=== PATIENT | male | born 1965 | race Caucasian/White ===

== ENCOUNTER 2025-10-30 09:14 | Outpatient (REF) | payer OTHER, SELFPAY ==
--- NOTE | 2025-10-30 09:19 | EMG_ITS ---
Chief complaint: Bilateral hand numbness, mostly nighttime Reason for referral: Evaluate for Carpal Tunnel Syndrome Referred by: Hernesto HERNANDEZ Procedure done: Bilateral upper extremities NCS/EMG Precautions and/or limitations: None The limb temperature was monitored continuously and remained between 32-36 degrees C during the performance of the NCS. Nerve Conduction Studies Anti Sensory Summary Table ?Stim Site NR Onset (ms) Norm Onset (ms) Peak (ms) Norm Peak (ms) O-P Amp (?V) Norm O-P Amp Site1 Site2 Delta-0 (ms) Dist (cm) Rajesh (m/s) Norm Rajesh (m/s) Left Median Anti Sensory (2nd Digit) Wrist ? 2.8 3.4 <3.6 29.5 >10 Wrist 2nd Digit 2.8 14.0 50 Right Median Anti Sensory (2nd Digit) Wrist ? 2.9 3.7 <3.6 27.1 >10 Wrist 2nd Digit 2.9 14.0 48 Right Radial Anti Sensory (Thumb) Forearm ? 1.8 2.4 <3.1 20.8 Forearm Thumb 1.8 0.0 Left Ulnar Anti Sensory (5th Digit) Wrist ? 2.4 3.1 <3.7 21.5 >15.0 Wrist 5th Digit 2.4 14.0 58 Right Ulnar Anti Sensory (5th Digit) Wrist ? 0.9 3.2 <3.7 16.1 >15.0 Wrist 5th Digit 0.9 14.0 156 Motor Summary Table ?Stim Site NR Onset (ms) Norm Onset (ms) O-P Amp (mV) Norm O-P Amp iAmp (mV) Amp (1st) (%) Site1 Site2 Delta-0 (ms) Dist (cm) Rajesh (m/s) Norm Rajesh (m/s) Left Median Motor (Abd Poll Brev) Wrist ? 3.6 <3.9 13.3 >4.5 15.8 100.0 Elbow Wrist 4.1 23.0 56 >45 Elbow ? 7.7 12.6 15.1 94.7 Right Median Motor (Abd Poll Brev) Wrist ? 3.4 <3.9 14.0 >4.5 16.5 100.0 Elbow Wrist 4.3 24.0 56 >45 Elbow ? 7.7 12.8 15.2 91.4 Left Ulnar Motor (Abd Dig Minimi) Wrist ? 3.1 <3.0 7.6 >5 9.1 100.0 B Elbow Wrist 3.6 20.0 56 >45 B Elbow ? 6.7 7.0 8.4 92.1 A Elbow B Elbow 1.5 10.0 67 >45 A Elbow ? 8.2 6.8 8.1 89.5 Right Ulnar Motor (Abd Dig Minimi) Wrist ? 3.0 <3.0 9.4 >5 11.3 100.0 B Elbow Wrist 3.8 21.0 55 >45 B Elbow ? 6.8 8.4 10.2 89.4 A Elbow B Elbow 1.2 10.0 83 >45 A Elbow ? 8.0 8.0 9.8 85.1 Comparison Summary Table ?Stim Site NR Peak (ms) Norm Peak (ms) P-T Amp (?V) Site1 Site2 Delta-P (ms) Norm Delta (ms) Right Median/Radial Dig I Comparison (Digit 1 - 10cm) Median ? 3.1 <2.9 57.8 Median Radial 0.1 Radial ? 3.0 <2.8 12.1 EMG ?Side Muscle Nerve Root Ins Act Fibs Psw Amp Dur Poly Recrt Int Pat Comment Right 1stDorInt Ulnar C8-T1 Nml Nml Nml Nml Nml 0 Nml Complete Right FlexCarRad Median C6-7 Nml Nml Nml Nml Nml 0 Nml Complete Right Biceps Musculocut C5-6 Nml Nml Nml Nml Nml 0 Nml Complete Right Triceps Radial C6-7-8 Nml Nml Nml Nml Nml 0 Nml Complete Right Deltoid Axillary C5-6 Nml Nml Nml Nml Nml 0 Nml Complete Left 1stDorInt Ulnar C8-T1 Nml Nml Nml Nml Nml 0 Nml Complete Left FlexCarRad Median C6-7 Nml Nml Nml Nml Nml 0 Nml Complete Left Biceps Musculocut C5-6 Nml Nml Nml Nml Nml 0 Nml Complete Left Triceps Radial C6-7-8 Nml Nml Nml Nml Nml 0 Nml Complete Left Deltoid Axillary C5-6 Nml Nml Nml Nml Nml 0 Nml Complete FINDINGS: Right median sensory nerve showed prolonged peak latency. All other nerves tested were within normal. Concentric needle EMG was performed in selected muscles of the bilateral upper extremities. Study did not reveal signs of electric abnormalities as shown in the table above. IMPRESSION: 1. This is an abnormal study. 2. There is electrodiagnostic evidence for right mild median neuropathy at the wrist, consistent with carpal tunnel syndrome. 3. There is no electrodiagnostic evidence for ulnar neuropathy, brachial plexopathy, or cervical radiculopathy. 4. No evidence of median neuropathy on the left on today's study. Thank you for your kind referral. Zoila Saab MD, REENA Board Certified, [place] [employer] and [employer] (ABPMR) Board Certified, [place] [employer] Electro[employer] (ABEM) CODIN [phone] x 2 extremities MTDD
--- OUTSIDE RECORDS SUMMARY | 2025-10-30 09:58 | XMS_ITS ---
Author Name [facility] Organization Unknown Care Team Organization Name Specialty Phone Email Start Date End Da te [facility] Michele Ke[facility] 10/05/2022 07/16/2024
--- OUTSIDE RECORDS SUMMARY | 2025-10-30 09:58 | XMS_ITS | Clinical Summary ---
Author Organization [facility] [address] Address [address] [place] [address] Phone Care Team Providers Care Inside [employer] Name Role Phone Marianela Cruz MD Primary Care Provider [phone] Allergies Active Allergy Reactions Criticality Noted Date Comments Pollen Extracts 05/13/2022 Seasonal Allergies Medications fluorouraciL (EFUDEX) 5 % cream Apply to affected areas twice daily for 1 consecutive week 1 Active entecavir (BARACLUDE) 0.5 mg tablet Take 0.5 mg by mouth daily. Active bisacodyL (DULCOLAX) 5 mg EC tablet Take 2 tablets by mouth right before beginning bowel prep. See instructions provided by the office 2 tablet 5 Active polyethylene glycol (Golytely) 236-22.74-6.74 -5.86 gram solution Take 4L by mouth once for one dose. May substitue any PEG. Starting at 2PM the day before your procedure drink 1 8oz glasses at your own pace until you complete half of the gallon. Finish 2nd half of the gallon at 8PM. 4000 mL 5 Active Active Problems Problem Noted Date Diagnosed Date Cervicalgia 08/14/2025 Overview (08/14/2025): 08/08/2025 diagnosis through [facility] [place], [place] Lumbar radiculopathy 08/14/2025 Overview (08/14/2025): 08/08/2025 diagnosis through [facility] [place] Carpal tunnel syndrome, bilateral 08/14/2025 Overview (08/14/2025): 08/08/2025 diagnosis through [facility] [place], [place] Abnormal CT of paranasal sinuses 12/11/2018 Overview (12/25/2024): 12/16- mucosal abnormalities, referred to ENT Subclinical hypothyroidism 07/25/2017 Chronic viral hepatitis B wi thout delta agent and without coma (CMS/HCC V24, CMS/HCC V28) 01/21/2016 Overview (12/25/2024): Ref gi 05/13. Pt did not respond [facility] GI Encounters Date Type Department Care Team Description 09/25/2025 4:17 PM EDT - 09/25/2025 11:59 PM EDT Hospital Encounter Radiology Department - [address] [address] Radiculopathy, lumbar region Discharge Disposition: Home or Self Care 08/27/2025 Results [facility] - [place] [facility] [address] [facility] [address] [place] [id number] Keshia Vasquez DO 08/26/2025 12:28 PM EDT Anesthesia Event [facility] [address] [place] [phone] Stephy Escobar MD Swanson, Mona, CRNA 08/26/2025 11:08 AM EDT - 08/26/2025 11:59 PM EDT Hospital Encounter [facility] [address] [place] [phone] Keshia Vasquez DO Swanson, Mona, CRNA Freeman, Katharine O, MD Colon cancer screening Discharge Disposition: Home or Self Care 08/08/2025 2:45 PM EDT - 08/08/2025 11:59 PM EDT Hospital Encounter [facility] [place] [address] Cervicalgia Discharge Disposition: Home or Self Care from Last 3 Months Immunizations Immunization Administration Dates Next Due Influenza Quadravalent, MDCK , 0.5ml, with preservative (Flucelvax) 6mo and older 09/26/2017 Tdap Tetanus diptheria acell ular pertussis (Boostrix; Adacel) 7yo and older 04/22/2016 Surgical History Surgery Date Site/Laterality Comments OTHER SURGICAL HISTORY PROCEDURE: DENIES PREVIOUS SURGERY Medical History Medical History Date Comments Hepatitis B DX:Hepatitis B Sprain of ligament of lumbos acral joint 06/24/2011 DX:Sprain of ligament of lum bosacral joint; COMMENT: IMO update Sacroiliitis, not elsewhere classified (CMS/HCC V24) 09/17/2008 DX:Sacroiliitis, not elsewhe re classified ([facility]) Concussion with no loss of consciousness 02/07/2018 DX:Concussion with no loss o f consciousness Facial numbness 09/20/2018 DX:Facial numbne ss; COMMENT: 09/14-MRI neg, contrast declined, MRI with contrast pending Family History Medical History Relation Name Comments Lung cancer Father Relation Name Status Comments Father Social History Tobacco Use Types Packs/Day Years Used Date Smoking Tobacco: Never Smokeless Tobacco: Never Tobacco Cessation:Counseling Given: Not Answered Alcohol Use Standard Drinks/Week Comments Yes 0 (1 standard drink = 0.6 oz pur e alcohol) Housing Instability Answer Date Recorde d Are you worried that in the next 2 months you may not have stable housing? No 05/21/2025 Food Access & Nutrition Answer Date Rec orded Do you have access to a vari ety of food including fruits and vegetables? Yes 05/21/2025 Access to Healthcare Answer Date Record ed Within the last 3 months, ho w many times did you visit the emergency department for your medical care? 0 05/21/2025 Health Literacy Answer Date Recorded How often do you need to hav e someone help you when you read instructions, pamphlets, or other written material from your doctor or pharmacy? Never 05/21/2025 Caregiver: How often do you need to have someone help you when you read instructions, pamphlets, or other written material from your doctor or pharmacy? Not on file 05/21/2025 Financial Risk Answer Date Recorded How hard is it for you to pa y for the very basics like food, housing, medical care, and air conditioning / heating? Not very hard 05/21/2025 Transportation Answer Date Recorded Has the lack of transportati on kept you from meetings, work, or from getting things needed for daily living? No Has the lack of transportati on kept you from medical appointments or from getting medications? No 05/21/2025 Social Isolation Answer Date Recorded How often do you feel lonely or isolated from th ose around you? Never 05/21/2025 Food Risk Answer Date Recorded Within the past 12 months we worried whether our food would run out before we got money to buy more. Never true 05/21/2025 Within the past 12 months th e food we bought just didn't last and we didn't have money to get more. Never true 05/21/2025 Dependent Care Answer Date Recorded Do you need help finding or paying for care for your loved ones. For example, child attendant or elderly care for an older adult? No 05/21/2025 Education Answer Date Recorded Do you think completing more education or training, like finishing a GED, going to college, or learning a trade, would be helpful for you? N/A 05/21/2025 Employment and Income Answer Date Recor ded During the last four weeks, have you been actively looking for work? No 05/21/2025 Living Situation Answer Date Recorded What is your living situation? Unrecognized valu e 05/21/2025 Interpersonal Safety Answer Date Record ed Physical Abuse Unrecognized value 08/26/2025 Verbal Abuse Unrecognized value 08/26/2025 Sex and Gender Information Value Date Recorded Sex Assigned at Male 07/18/2025 12:00 PM EDT Legal Sex Male 4:15 AM EST Gender Identity Male 07/18/2025 12:00 PM EDT Sexual Orientation Straight 07/18/2025 12 :00 PM EDT Obstetrics History Last Filed Vital Signs Vital Sign Reading Time Taken Comments Blood Pressure 108/73 08/26/2025 1:05 PM EDT Pulse 63 08/26/2025 1:05 PM EDT Temperature 36.1 C (97 F) 08/26/2025 12:45 PM EDT Respiratory Rate 18 08/26/2025 1:05 PM EDT Oxygen Saturation 98% 08/26/2025 1:05 PM EDT Inhaled Oxygen Concentration - - Weight 94.8 kg (209 lb) 08/26/2025 11:53 AM EDT Height 180.3 cm (5' 11 ) 08/26/2025 11:53 AM EDT Body Mass Index 29.15 08/26/2025 11:53 AM EDT Plan of Treatment Health Maintenance Due Date Last Done Comments Hepatitis A Vaccines (1 of 2 - Risk 2-dose series) 1984 Pneumococcal Vaccine: 50+ Years (1 of 2 - PCV) 1984 RSV Immunization Adult Patients (1 - Risk 50-74 years 1-dose series) 2015 Zoster Vaccines (1 of 2) 2015 HIV Screening 10/31/2022 Hepatitis B Vaccines (1 of 3 - Risk 3-dose series) 2025 COVID-19 Vaccine ( season) 2025 10/19/2022, 10/13/2021, 03/30/2021, Additional history exists Influenza Vaccine (#1) 2025 10/19/2022, 2016 DTaP,Tdap,and Td Vaccines (2 - Td or Tdap) 04/22/2026 04/22/2016 Social Influencers of Health Screening 05/21/2026 05/21/2025 Cholesterol Screening (Lipid Panel) 05/22/2029 05/22/2024, 05/22/2024 Colorectal Cancer Screening: Colonoscopy 08/26/2035 08/26/2025, 08/06/2015 Hepatitis C Screening Completed 09/08/2018 Depression Screening Completed 05/28/2025 HIB Vaccines Aged Out No longer eligi ble based on patient's age to complete this topic HPV Vaccines Aged Out No longer eligi ble based on patient's age to complete this topic IPV Vaccines Aged Out No longer eligi ble based on patient's age to complete this topic MMR Vaccines Aged Out No longer eligi ble based on patient's age to complete this topic Meningococcal ACWY Vaccine Aged Out N o longer eligible based on patient's age to complete this topic Meningococcal B Vaccine Aged Out No l onger eligible based on patient's age to complete this topic RSV Immunization Patients Under 20 months Aged Out No longer eligible based on patient's age to complete this topic Varicella Vaccines Aged Out No longer eligible based on patient's age to complete this topic Procedures Procedure Name Priority Date/Time Associated Diagnosis Comments MR LUMBAR SPINE WO CONTRAST Routine 09/25/2025 4:59 PM EDT Radiculopathy, lumbar region COLONOSCOPY Routine 08/26/2025 12:44 PM EDT Colon cancer screening TISSUE EXAM Routine 08/26/2025 12:39 PM EDT Colon cancer screening XR CERVICAL SPINE 4-5 VIEWS Routine 08/08/2025 3:04 PM EDT Cervicalgia LIPID PANEL Routine 05/22/2024 HM HEPATITIS C SCREENING Routine 09/08/2018 from Last 3 Months or Most Recently Relevant to Health Maintenance Results * MR Lumbar Spine wo Contrast (09/25/2025 4:59 PM EDT) Anatomical Region Laterality Modality L-spine, Spine Magnetic Resonan ce 09/26/2025 5:20 PM EDT Impressions 09/27/2025 12:53 PM EDT Impression: Multilevel degenerative changes of the lumbar spine as described above. -------- FINAL REPORT -------- Dictated By: Lola Samuel Dictated Date: 09/26/2025 17:20 ET Assigned Physician: Lola Samuel Reviewed and Electronically Signed By: Lola Samuel Signed Date: 09/27/2025 12:53 ET Workstation ID: [id number] Transcribed By: Self Edit Transcribed Date: 09/26/2025 17:21 ET Narrative 09/27/2025 12:53 PM EDT MRI LUMBAR SPINE Clinical Statement: neck and low back pain with parrsthesias Comparison: None Technique: Multiplanar, multisequence MRI images of the lumbar spine were obtained without intravenous contrast. Findings: There is normal lumbar lordosis. There is preservation of vertebral body height. Vertebral body marrow is within normal limits. Disc desiccation at multiple levels with disc height loss at L4-L5 and L5-S1. Cord signal is normal. The conus medullaris is normal in signal characteristics and morphology and terminates at the L1-2 level. T12-L1: No neuroforaminal or spinal canal stenosis seen on the sagittal view L1-L2: Broad-based disc bulge, facet arthropathy and hypertrophy, ligamentum flavum hypertrophy with moderate bilateral neuroforaminal stenosis and mild spinal canal stenosis L2-L3: Broad-based disc bulge, facet arthropathy and hypertrophy, ligamentum flavum hypertrophy with moderate bilateral neuroforaminal stenosis and moderate spinal canal stenosis L3-L4: Broad-based disc bulge and central disc protrusion, facet arthropathy and hypertrophy, ligamentum flavum hypertrophy, small annular tear with mild right and moderate left neuroforaminal stenosis and mild spinal canal stenosis L4-L5: Broad-based disc bulge and central disc protrusion, posterior annular tear, facet arthropathy and hypertrophy, ligamentum flavum hypertrophy with moderate bilateral neuroforaminal stenosis and moderate spinal canal stenosis L5-S1: Broad-based disc bulge, facet arthropathy with moderate to severe right and mild left neuroforaminal stenosis, no spinal canal stenosisI Procedure Note Lola Samuel MD - 09/27/2025 MRI LUMBAR SPINE Clinical Statement: neck and low back pain with parrsthesias Comparison: None Technique: Multiplanar, multisequence MRI images of the lumbar spine wereobtained without intravenous contrast. Findings: There is normal lumbar lordosis. There is preservation ofvertebral body height. Vertebral body marrow is within normal limits.Disc desiccation at multiple levels with disc height loss at L4-L5 andL5-S1. Cord signal is normal. The conus medullaris is normal in signalcharacteristics and morphology and terminates at the L1-2 level. T12-L1: No neuroforaminal or spinal canal stenosis seen on the sagittalview L1-L2: Broad-based disc bulge, facet arthropathy and hypertrophy,ligamentum flavum hypertrophy with moderate bilateral neuroforaminalstenosis and mild spinal canal stenosis L2-L3: Broad-based disc bulge, facet arthropathy and hypertrophy,ligamentum flavum hypertrophy with moderate bilateral neuroforaminalstenosis and moderate spinal canal stenosis L3-L4: Broad-based disc bulge and central disc protrusion, facetarthropathy and hypertrophy, ligamentum flavum hypertrophy, small annulartear with mild right and moderate left neuroforaminal stenosis and mildspinal canal stenosis L4-L5: Broad-based disc bulge and central disc protrusion, posteriorannular tear, facet arthropathy and hypertrophy, ligamentum flavumhypertrophy with moderate bilateral neuroforaminal stenosis and moderatespinal canal stenosis L5-S1: Broad-based disc bulge, facet arthropathy with moderate to severeright and mild left neuroforaminal stenosis, no spinal canal stenosisI IMPRESSION: Impression: Multilevel degenerative changes of the lumbar spine as described above. -------- FINAL REPORT -------- Dictated By: Lola Samuel Dictated Date: 09/26/2025 17:20 ET Assigned Physician: Lola Samuel Reviewed and Electronically Signed By: Lola Samuel Signed Date: 09/27/2025 12:53 ET Workstation ID: [id number] Transcribed By: Self Edit Transcribed Date: 09/26/2025 17:21 ET Hernesto HERNANDEZ IMG MRI PROCEDURES Final Resul t * COLONOSCOPY Anesthesia - MAC; [facility] ENDOSCOPY (08/26/2025 12:44 PM EDT) Anatomical Region Laterality Modality Endoscopy 08/26/2025 11:4 4 AM EDT Impressions 08/26/2025 12:45 PM EDT - Hemorrhoids found on perianal exam. - One 6 mm polyp in the ascending colon, removed with a cold snare. Resected and retrieved. - The examination was otherwise normal on direct and retroflexion views. Recommendation: - Discharge patient to home. - High fiber diet. - Continue present medications. - Await pathology results. - Repeat colonoscopy for surveillance based on pathology results. Narrative 08/26/2025 12:[address] [facility] Patient Name: Hilton Fermin Procedure Date: 08/26/2025 11:44 AM Date of : 1965 Age: 60 Gender: Male Note Status: Finalized Attending MD: Keshia Vasquez DO, [id number] Procedure Date No Time: 08/26/2025 Procedure: Colonoscopy Indications: Screening for colorectal malignant neoplasm Providers: Keshia Vasquez DO Referring MD: Michele Cruz MD Medicines: Monitored Anesthesia Care Complications: No immediate complications. Estimated blood loss: Minimal. Estimated Blood Loss: Estimated blood loss was minimal. Procedure: Pre-Anesthesia Assessment: - - Prior to the procedure, a History and Physical was performed, and patient medications and allergies were reviewed. The patient is competent. The risks and benefits of the procedure and the sedation options and risks were discussed with the patient. All questions were answered and informed consent was obtained. Patient identification and proposed procedure were verified by the physician, the nurse, the anesthesiologist, the nuclear plant instrument technician and the strain technician in the pre-procedure area in the endoscopy suite. Mental Status Examination: alert and oriented. Airway Examination: normal oropharyngeal airway and neck mobility. Respiratory Examination: clear to auscultation. CV Examination: normal. Prophylactic Antibiotics: The patient does not require prophylactic antibiotics. Prior Anticoagulants: The patient has taken no anticoagulant or antiplatelet agents. ASA Grade Assessment: II - A patient with mild systemic disease. After reviewing the risks and benefits, the patient was deemed in satisfactory condition to undergo the procedure. The anesthesia plan was to use monitored anesthesia care (MAC). Immediately prior to administration of medications, the patient was re-assessed for adequacy to receive sedatives. The heart rate, respiratory rate, oxygen saturations, blood pressure, adequacy of pulmonary ventilation, and response to care were monitored throughout the procedure. The physical status of the patient was re-assessed after the procedure. After I obtained informed consent, the scope was passed under direct vision. Throughout the procedure, the patient's blood pressure, pulse, and oxygen saturations were monitored continuously. The Olympus Pediatric Colonoscope was introduced through the anus and advanced to the terminal ileum. The colonoscopy was performed without difficulty. The patient tolerated the procedure well. The quality of the bowel preparation was good. Anatomical landmarks were photographed. Findings: Hemorrhoids were found on perianal exam. A few small-mouthed diverticula were found in the sigmoid colon and descending colon. There was no evidence of diverticular bleeding. A 6 mm polyp was found in the ascending colon. The polyp was sessile. The polyp was removed with a cold snare. Resection and retrieval were complete. Verification of patient identification for the specimen was done. Estimated blood loss was minimal. The exam was otherwise without abnormality on direct and retroflexion views. Procedure Code(s): --- Professional --- 36894, Colonoscopy, flexible; with removal of tumor(s), polyp(s), or other lesion(s) by snare technique Diagnosis Code(s): --- Professional --- Z12.11, Encounter for screening for malignant neoplasm of colon K64.9, Unspecified hemorrhoids D12.2, Benign neoplasm of ascending colon CPT copyright 2020 [employer]. All rights reserved. The codes documented in this report are preliminary and upon professional nursing assistant review may be revised to meet current compliance requirements. KESHIA Vasquez DO 08/26/2025 12:44:58 PM This report has been signed electronically.Keshia Vasquez DO Number of Addenda: 0 Note Initiated On: 08/26/2025 11:44 AM Scope Withdrawal Time: 0 hours 7 minutes 34 seconds Scope In: 12:33:02 PM Scope Out: 12:43:49 PM Endoscopy Department at [address] [address] Procedure Note Keshia Vasquez DO - 08/26/2025 [facility] Patient Name: Hilton Fermin Procedure Date: 08/26/2025 11:44 AM Date of : 1965 Age: 60 Gender: Male Note Status: Finalized Attending MD: Keshia Vasquez DO, [id number] Procedure Date No Time: 08/26/2025 Procedure: Colonoscopy Indications: Screening for colorectal malignant neoplasm Providers: Keshia Vasquez DO Referring MD: Michele Cruz MD Medicines: Monitored Anesthesia Care Complications: No immediate complications. Estimated blood loss: Minimal. Estimated Blood Loss: Estimated blood loss was minimal. Procedure: Pre-Anesthesia Assessment: - - Prior to the procedure, a History and Physicalwas performed, and patient medications and allergieswere reviewed. The patient is competent. The risks and benefits of the procedure and the sedation optionsand risks were discussed with the patient. Allquestions were answered and informed consent was obtained. Patient identification and proposed procedure were verified by the physician, the nurse, the anesthesiologist, the nuclear plant instrument technician and thetechnician in the pre-procedure area in the endoscopy suite. Mental Status Examination: alert and oriented.Airway Examination: normal oropharyngeal airway and neck mobility. Respiratory Examination: clear to auscultation. CV Examination: normal. Prophylactic Antibiotics: The patient does not requireprophylactic antibiotics. Prior Anticoagulants: The patient has taken no anticoagulant or antiplatelet agents. ASA Grade Assessment: II - A patient with mild systemic disease. After reviewing the risks and benefits,the patient was deemed in satisfactory condition to undergo the procedure. The anesthesia plan was touse monitored anesthesia care (MAC). Immediately priorto administration of medications, the patient was re-assessed for adequacy to receive sedatives. The heart rate, respiratory rate, oxygen saturations, blood pressure, adequacy of pulmonary ventilation,and response to care were monitored throughout the procedure. The physical status of the patient was re-assessed after the procedure. After I obtained informed consent, the scope was passed under direct vision. Throughout theprocedure, the patient's blood pressure, pulse, and oxygen saturations were monitored continuously. TheMontage Studiopus Pediatric Colonoscope was introduced through theanus and advanced to the terminal ileum. The colonoscopy was performed without difficulty. The patient tolerated the procedure well. The quality of thebowel preparation was good. Anatomical landmarks were photographed. Findings: Hemorrhoids were found on perianal exam. A few small-mouthed diverticula were found in the sigmoid colon and descending colon. There was no evidence of diverticular bleeding. A 6 mm polyp was found in the ascending colon. The polyp was sessile. The polyp was removed with acold snare. Resection and retrieval were complete. Verification of patient identification for the specimen was done. Estimated blood loss wasminimal. The exam was otherwise without abnormality ondirect and retroflexion views. Procedure Code(s): --- Professional --- 98811, Colonoscopy, flexible; with removal of tumor(s), polyp(s), or other lesion(s) by snare technique Diagnosis Code(s): --- Professional --- Z12.11, Encounter for screening for malignantneoplasm of colon K64.9, Unspecified hemorrhoids D12.2, Benign neoplasm of ascending colon CPT copyright 2020 [employer]. All rights reserved. The codes documented in this report are preliminary and upon professional nursing assistant reviewmay be revised to meet current compliance requirements. KESHIA Vasquez DO 08/26/2025 12:44:58 PM This report has been signed electronically.Keshia Vasquez DO Number of Addenda: 0 Note Initiated On: 08/26/2025 11:44 AM Scope Withdrawal Time: 0 hours 7 minutes 34 seconds Scope In: 12:33:02 PM Scope Out: 12:43:49 PM Endoscopy Department at [facility] - [address] [place] [phone] IMPRESSION: - Hemorrhoids found on perianal exam. - One 6 mm polyp in the ascending colon, removedwith a cold snare. Resected and retrieved. - The examination was otherwise normal on directand retroflexion views. Recommendation: - Discharge patient to home. - High fiber diet. - Continue present medications. - Await pathology results. - Repeat colonoscopy for surveillance based on pathology results. Keshia Vasquez DO GI~PROCEDURE ORDERABLES Final Re sult * Tissue exam (08/26/2025 12:39 PM EDT) Final Diagnosis Ascending Colon, polyp: Benign colonic mucosa with focal lymphoid aggregate. No dysplasia or neoplasia identified. 08/27/2025 1:15 PM EDT [facility] at 1315 EDT Gross Description A. Large Intestine, Right/Ascend ing Colon, polyp x1: Labeled polyp x 1 ascend colon . Received in green-staine d formalin, is a 0.4 x 0.2 x 0.1 cm aggregate of soft to friable, ward-pink polypoid tissue fragments and fecal/food debris, which are wrapped in paper and submitted in toto in one cassette, multiple pieces, multiple levels. TS 08/27/2025 1:15 PM EDT [facility] Disclaimer Unless otherwise specified, all tissue is 10% NB formalin fixed and paraffin embedded. 08/27/2025 1:15 PM EDT [facility] Tissue Ascending colon structure / Unknown 08/26/2025 12:39 PM EDT 08/26/2025 1:51 PM EDT us Keshia Vasquez DO LAB PATHOLOGY ORDERABLES Final R esult [facility] [address] [place] [address], [place] [phone] * XR Cervical Spine 4-5 Views (08/08/2025 3:04 PM EDT) Anatomical Region Laterality Modality Spine, C-spine Radiographic Fern ging 08/08/2025 9:15 PM EDT Impressions 08/08/2025 9:18 PM EDT 1. No fracture or dislocation of the cervical spine. 2. Mild to moderate degenerative changes. -------- FINAL REPORT -------- Dictated By: Lola Samuel Dictated Date: 08/08/2025 21:15 ET Assigned Physician: Lola Samuel Reviewed and Electronically Signed By: Lola Samuel Signed Date: 08/08/2025 21:18 ET Workstation ID: [id number] Transcribed By: Self Edit Transcribed Date: 08/08/2025 21:15 ET Narrative 08/08/2025 9:18 PM EDT HISTORY: pain TECHNIQUE: 4 views of the cervical spine COMPARISON: None FINDINGS: The cervical spine is visualized from C1-C7. Vertebral body height is maintained. Decreased disc height at C5-C6 and C6-C7 with endplate sclerosis. Small anterior osteophytes are present along the lower cervical spine. There is moderate neuroforaminal stenosis at the mid to lower cervical spine. Moderate uncovertebral arthropathy is present. The cervical alignment is maintained without spondylolisthesis. No acute fracture or dislocation is seen. There is no prevertebral soft tissue swelling. Procedure Note Lola Samuel MD - 08/08/2025 HISTORY: pain TECHNIQUE: 4 views of the cervical spine COMPARISON: None FINDINGS: The cervical spine is visualized from C1-C7. Vertebral body height ismaintained. Decreased disc height at C5-C6 and C6-C7 with endplatesclerosis. Small anterior osteophytes are present along the lower cervicalspine. There is moderate neuroforaminal stenosis at the mid to lowercervical spine. Moderate uncovertebral arthropathy is present. Thecervical alignment is maintained without spondylolisthesis. No acutefracture or dislocation is seen. There is no prevertebral soft tissueswelling. IMPRESSION: 1. No fracture or dislocation of the cervical spine. 2. Mild to moderate degenerative changes. -------- FINAL REPORT -------- Dictated By: Lola Samuel Dictated Date: 08/08/2025 21:15 ET Assigned Physician: Lola Samuel Reviewed and Electronically Signed By: Lola Samuel Signed Date: 08/08/2025 21:18 ET Workstation ID: [id number] Transcribed By: Self Edit Transcribed Date: 08/08/2025 21:[address] [facility] Hernesto HERNANDEZ IMG XR PROCEDURES Final Result * Lipid panel (05/22/2024) LDL/HDL Ratio 2 0 - 4 Triglycerides 66 0 - 150 mg/dL Cholesterol 150 0 - 200 mg/dL HDL 66 >=40 mg/dL LDL Cholesterol 71 0 - 100 mg/dL Blood Venous blood specimen / Unknown Result [facility] Historical Provider LAB BLOOD ORDERABLES Latosha l Result * Hepatitis C Screening (09/08/2018) Pathologist [facility] Hepatitis C Screening abstracted Historical Provider HEALTH MAINTENANCE Final Result from Last 3 Months or Most Recently Relevant to Health Maintenance Insurance [facility] Care Teams Inside Horticultural Specialty Grower Relationship Specialty Start Date End Date Marianela Cruz MD [address] [place] [id number] PCP - General Internal Medicine 01/19/16
--- OUTSIDE RECORDS SUMMARY | 2025-10-30 09:58 | XMS_ITS | Encounter Summary ---
Author Organization [facility] Address [address] [place] [address] Care Team Providers Care Field Technical Specialist Name Role Phone Marianela Cruz MD Primary Care Provider Encounter Details Date Type Department Care Team (Late st Contact Info) Description 08/27/2025 Results Follow-Up Gastroenterology - [place] [address] [facility] [address] [facility] [address] [place] [address] Domingo Vasquez DO [address] [facility] [address] [place] [address] Social History Tobacco Use Types Packs/Day Years Used Date Smoking Tobacco: Never Smokeless Tobacco: Never Alcohol Use Standard Drinks/Week Comments Yes 0 [...] Record ed Within the last 3 months, tammy berger many times did you visit the emergency [...] do you feel lonely or isolated from ose around you? Never 05/21/2025 Food Risk [...] care for your loved ones. For example, early childhood teacher or elderly care for an older adult? [...] Orientation Straight 07/18/2025 12 :00 PM EDT documented as of this encounter Progress Notes * Domingo Vasquez DO - 08/27/2025 1:20 PM EDT Please let the patient know that the colon polyp removed was benign and and not precancerous. Giventhe lack of personal or family history risk factors, and based on current guidelines, I recommend that a repeat screening colonoscopy is scheduled in 10 years. The patient may follow-up with the primary care provider as instructed. Please place a reminder on the system for the patient to be contacted to have a repeat screening colonoscopy in 10 years. Thank you. documented in this encounter Plan of Treatment Not on file documented as of this encounter Visit Diagnoses Not on filedocumented in this encounter Additional Health Concerns Assessment Noted Time PHQ-9 Depression Total Score: 0 05/28/20 25 9:28 AM EDT documented as of this encounter Care Teams Field Technical Specialist Relationship Specialty Start Date End Date Marianela Cruz MD [address] [place] [id number] PCP - General Internal Medicine 01/19/16 documented as of this encounter
== END 2025-10-30 09:15 | disposition home or self-care (01) ==
LOC: HO.NEURO 09:14
PROVIDERS: PCP Pediatrics; Visit Provider Physician Assistant
DX: G56.03 Carpal tunnel syndrome, bilateral upper limbs (principal); R20.0 Anesthesia of skin
CPT/HCPCS: 95886; 95911

== ENCOUNTER → 2025-10-30 09:19 | Outpatient (BNV) | payer OTHER, SELFPAY | PROVIDERS: PCP Pediatrics; Visit Provider Physical Medicine & Rehabilitation | DX: G56.01 Carpal tunnel syndrome, right upper limb (principal); R20.2 Paresthesia of skin | CPT/HCPCS: 95886; 95911 ==

== ENCOUNTER 2025-11-18 11:16 | Outpatient (AMB) | payer OTHER, SELFPAY ==
--- OUTSIDE RECORDS SUMMARY | 2025-11-13 15:00 | XMS_ITS | Encounter Summary ---
Author Organization [facility] Address [address] [place] [address] Care Team Providers Care Supervisor Grounds Name Role Phone Marianela Cruz MD Primary Care Provider [phone] Reason for Visit * Reason Comments Arm Pain R arm/bicep Encounter Details Date Type Department Care Team (Late st Contact Info) Description 11/13/2025 3:00 PM EST Office Visit Walk-In Clinic - [facility] [address] [place] [phone] Manolo Zapien PA [address] [place] [address] Biceps strain, right, initial encounter (Primary Dx); Medial epicondylitis, right elbow Social History Tobacco Use Types Packs/Day Years [...] PM EDT documented as of this encounter Last Filed Vital Signs Vital Sign Reading Time Taken Comments Blood Pressure 122/59 11/13/2025 3:06 PM EST Pulse 64 11/13/2025 3:06 PM EST Temperature 36.9 C (98.4 F) 11/13/2025 3:06 PM EST Respiratory Rate 16 11/13/2025 3:06 PM EST Oxygen Saturation 98% 11/13/2025 3:06 PM EST Inhaled Oxygen Concentration - - Weight - - Height - - Body Mass Index - - documented in this encounter Progress Notes * MARY Doyle - 11/13/2025 3:00 PM EST CHIEF COMPLAINT: Chief Complaint Patient presents with Arm Pain R arm/bicep HPI: Hilton Fermin is a 60 y.o. old male presenting with pain in the right arm that began yesterday. He was performing weightlifting at the gym, when he felt his right arm give out. He had a controlleddrop and had caught the arm with his left hand to fully release the weights. Pain has improved since yesterday. Pain is localized by patient in the proximal aspect of the antecubital fossa, and overlying the medial epicondyle. He does endorse weakness with arm flexion, and has found it difficult tolift objects such as a water bottle. Range of motion and strength have overall improved since yesterday. ROS: Remainder of the 12 point review of symptoms unremarkable except for those idenitified in the HPI. PAST MEDICAL HISTORY: Patient Active Problem List Diagnosis Date Noted Cervicalgia 08/14/2025 Lumbar radiculopathy 08/14/2025 Carpal tunnel syndrome, bilateral 08/14/[address] of paranasal sinuses 12/11/2018 Subclinical hypothyroidism 07/25/2017 Chronic viral hepatitis B without delta agent and without coma ([facility] V24, [facility]/HCC V28) 01/21/2016 Surgical History[1] SOCIAL HISTORY: Social History Tobacco Use Smoking status: Never Smokeless tobacco: Never Substance Use Topics Alcohol use: Yes FAMILY HISTORY: Family History[2] Family Status Relation Name Status Father (Not Specified) No partnership data on file MEDICATIONS DISCONTINUED/REORDERED: There are no discontinued medications. ACTIVE MEDICATIONS: Medications Taking[3] ALLERGIES: Allergies[4] PHYSICAL EXAM: Vitals: 11/13/25 1506 BP: 122/59 Pulse: 64 Resp: 16 Temp: 36.9 ??C (98.4 ??F) TempSrc: Temporal SpO2: 98% CONSTITUTIONAL: alert, calm, cooperative, in no acute distress HEAD: normocephalic, atraumatic EYES: extraocular movement intact (EOMI), sclera non-icteric EARS: no hearing deficit noted NECK/THYROID: neck range of motion grossly intact SKIN: warm and dry LUNGS: respirations regular rate and depth without acute distress MSK: no clubbing, cyanosis, or edema of the extremities. Distal biceps tendon with mild tenderness. Tendon origin just distal to the medial epicondyle is tender. Mild tenderness overlying the cubital tunnel. No erythema warmth, skin streaking, rash, ecchymosis. Proximal biceps tendon nontender. Biceps muscle body without softening or retraction. 5/5 biceps muscle strength against resistance withheld in partial flexion. 4/5 overall flexion strength of the elbow. Elbow fully flexes and fully extends. Hand and fingers moving spontaneously without weakness or loss of range of motion. Radial pulse 2+. NEUROLOGIC: alert and oriented, no tremor, cranial nerves II-XII grossly intact PSYCH: mood/affect full range, speech clear, good eye contact, cooperative with exam LABS/IMAGING: X-ray right elbow: No visualized acute fracture or dislocation on initial read. Pending radiology final interpretation. Lab Results Component Value Date EGFR 61 05/28/2025 IMPRESSION: 1. Biceps strain, right, initial encounter 2. Medial epicondylitis, right elbow PLAN: The patient's PMH, problem list and medications were reviewed in reference to the above diagnosis/diagnoses. Based on ROS, HPI, and PE, suggestive of strain of right biceps tendon with associated medial epicondylitis. No signs of tendon rupture. Neurovascular status of the extremity is grossly intact. He ishemodynamically stable in no acute distress. Educated patient to rest, ice/heat, compression, elevation. Recommended wearing elbow brace or wraps to help with pain control. Recommendation made for naproxen 220 mg tablets: Take 2 tablets every 12 hours until resolution, upto 10 days. Declines needing prescription for this, states he has enough at home. Reviewed importance of reducing weight and repetitions after rest period of the arm before returning to weightlifting. Too much weight, too many repetitions, or return to soon can increase risk of further injuries or torn muscles. Rest the arm fully from the gym for the next week, and then start very gently before gradually build into return to gym exercise with the arm. Advised to follow up with PCP in 10 days if symptoms do not improve. Advised to follow up with UC or PCP immediately for new or worsening symptoms. Educated on red flags symptoms. Advised to go to the ER or call 911 for these symptoms. Patient understands the plan. Patient verbalizes agreement with the plan. Orders Placed This Encounter Procedures XR Elbow 3+ Views Right Standing Status: Future Number of Occurrences: 1 Expected Date: 11/13/2025 Expiration Date: 11/13/2026 In what REGION should this be scheduled?: [facility] [[id number]] In what [place] LOCATION should this be scheduled?: [facility] [address] [facility] [[id number]] Release to patient: Immediate [1] MARY Doyle on 11/13/2025 at 4:14 PM EST Today's documentation was made using voice recognition software. This note may contain grammatical errors secondary to this software. [1] Past Surgical History: Procedure Laterality Date OTHER SURGICAL HISTORY PROCEDURE: DENIES PREVIOUS SURGERY [2] Family History Problem Relation Name Age of Onset Lung cancer Father [3] Outpatient Medications Marked as Taking for the 11/13/25 encounter (Office Visit) with MARY Doyle Medication Sig Dispense Refill bisacodyL (DULCOLAX) 5 mg EC tablet Take 2 tablets by mouth right before beginning bowel prep. See instructions provided by the office 2 tablet 0 entecavir (BARACLUDE) 0.5 mg tablet Take 0.5 mg by mouth daily. fluorouraciL (EFUDEX) 5 % cream Apply to affected areas twice daily for 1 consecutive week polyethylene glycol (Golytely) 236-22.74-6.74 -5.86 gram solution Take 4L by mouth once for one dose. May substitue any PEG. Starting at 2PM the day before your procedure drink 1 8oz glasses at your own pace until you complete half of the gallon. Finish 2nd half of the gallon at 8PM. 4000 mL 0 [4] Allergies Allergen Reactions Pollen Extracts Seasonal Allergies Cosigned by Lefty Boyce MD at 11/14/2025 10:11 AM EST documented in this encounter Plan of Treatment Not on file documented as of this encounter Results * XR Elbow 3+ Views Right (11/13/2025 3:58 PM EST) Anatomical Region Laterality Modality Upper Extremities, Elbow Right Radiogr aphic Imaging 11/13/2025 4:18 PM EST Impressions 11/13/2025 4:22 PM EST No acute fracture or dislocation. -------- FINAL REPORT -------- Dictated By: Aleksandra Levi Dictated Date: 11/13/2025 16:18 ET Assigned Physician: Aleksandra Levi Reviewed and Electronically Signed By: Aleksandra eLvi Signed Date: 11/13/2025 16:22 ET Workstation ID: [id number] Transcribed By: Self Edit Transcribed Date: 11/13/2025 16:18 ET Narrative 11/13/2025 4:22 PM EST EXAM: Right elbow x-ray HISTORY: Pain and weakness after weight lifting. COMPARISON: None FINDINGS: 3 views performed. No acute fracture or dislocation detected. Joint spaces are maintained. Mild spurring at the elbow joint. No destructive bone lesion. No evidence of a joint effusion. No soft tissue calcifications. Procedure Note Aleksandra Levi MD - 11/13/2025 EXAM: Right elbow x-ray HISTORY: Pain and weakness after weight lifting. COMPARISON: None FINDINGS: 3 views performed. No acute fracture or dislocation detected. Joint spaces are maintained.Mild spurring at the elbow joint. No destructive bone lesion. No evidenceof a joint effusion. No soft tissue calcifications. IMPRESSION: No acute fracture or dislocation. -------- FINAL REPORT -------- Dictated By: Aleksandra Levi Dictated Date: 11/13/2025 16:18 ET Assigned Physician: Aleksandra Levi Reviewed and Electronically Signed By: Aleksandra Levi Signed Date: 11/13/2025 16:22 ET Workstation ID: [id number] Transcribed By: Self Edit Transcribed Date: 11/13/2025 16:18 ET us Manolo HERNANDEZ IMG XR PROCEDURES Final Re sult documented in this encounter Visit Diagnoses Diagnosis Biceps strain, right, initial encounter- Primary Medial epicondylitis, right elbow Biceps strain, right, initial encounter Medial epicondylitis, right elbow documented in this encounter Additional Health Concerns Assessment Noted Time PHQ-9 Depression Total Score: 0 05/28/20 25 9:28 AM EDT documented as of this encounter Care Teams Supervisor Grounds Relationship Specialty Start Date End Date Marianela Cruz MD [address] [place] [id number] PCP - General Internal Medicine 01/19/16 documented as of this encounter
--- OUTSIDE RECORDS SUMMARY | 2025-11-13 15:51 | XMS_ITS | Encounter Summary ---
Author Organization [facility] [place] [address] Care Team Providers Care Music Assistant Name Role Phone Marianela Cruz MD Primary Care Provider [phone] Encounter Details Date Type Department Care Team (Latest Contact Info) Description 11/13/2025 3:51 PM EST - 11/13/2025 11:59 PM EST [facility] [address] [place] [phone] Biceps strain, right, initial encounter; Medial epicondylitis, right elbow Discharge Disposition: Home or Self Care Social History Tobacco Use Types Packs/Day Years [...] for your loved ones. For example, child and adolescent psychologist or elderly care for an older adult? [...] PM EDT documented as of this encounter Medications at Time of Discharge bisacodyL (DULCOLAX) 5 mg EC tablet Take 2 tablets by mouth right before beginning bowel prep. See instructions provided by the office 2 tablet 08/12/2025 entecavir (BARACLUDE) 0.5 mg tablet Take 0.5 mg by mouth daily. fluorouraciL (EFUDEX) 5 % cream Apply to affected areas twice daily for 1 consecutive week 06/23/2021 polyethylene glycol (Golytely) 236-22.74-6.74 -5.86 gram solution Take 4L by mouth once for one dose. May substitue any PEG. Starting at 2PM the day before your procedure drink 1 8oz glasses at your own pace until you complete half of the gallon. Finish 2nd half of the gallon at 8PM. 4000 mL 08/12/2025 documented as of this encounter Discharge Disposition Disposition Code Departure Means Destination Home or Self Care documented in this encounter Plan of Treatment Not on file documented as of this encounter Procedures Procedure Name Priority Date/Time Associated Diagnosis Comments XR ELBOW 3+ VIEWS RIGHT STAT 11/13/2025 3:58 PM EST Biceps strain, right, initial encounter Medial epicondylitis, right elbow documented in this encounter Results * XR Elbow 3+ [...] Signed Date: 11/13/2025 16:22 ET Workstation ID: [id number] Transcribed By: Self Edit Transcribed Date: 11/13/2025 [...] Signed Date: 11/13/2025 16:22 ET Workstation ID: [id number] Transcribed By: Self Edit Transcribed Date: 11/13/2025 16:18 ET us Manolo HERNANDEZ IMG XR PROCEDURES Final Re sult documented in this encounter Visit Diagnoses Diagnosis Biceps strain, right, initial encounter Medial epicondylitis, right elbow documented in this encounter Additional Health Concerns Assessment Noted Time PHQ-9 Depression Total Score: 0 05/28/20 25 9:28 AM EDT documented as of this encounter Care Teams Music Assistant Relationship Specialty Start Date End Date Marianela Cruz MD [address] [place] [id number] PCP - General Internal Medicine 01/19/16 documented as of this encounter
--- NOTE | 2025-11-18 11:28 | A.PHYSOV ---
Vital Signs 11/18/25 11:29 Height 5 ft 11 in Weight 215 lb BMI 30.0 Intake Visit Reasons: follow up Intake Note: Patient nis a 60 year old male here for EMG review. 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 A recent EMG confirmed very mild carpal tunnel syndrome. The patient reports that his neck and arm pain are about the same, with the neck pain characterized as stiffness. He states his low back pain is more significant than his neck pain, and his symptoms sometimes disturb his sleep. He describes an episode where his right arm collapsed while bench pressing, though he did not feel a pop or tear. He reports associated tingling in his hand. Past diagnostic workup includes a prior MRI of his low back. Pain Description - Location: Reports neck pain, which is less severe than his low back pain. - Quality: Neck pain is described as stiffness. - Associated Symptoms: Experiences tingling in his hand and sleep disturbance from pain. - Exacerbating Factors: Patient is concerned that heavy lifting may be contributing to his symptoms and reports a recent episode of arm collapse while bench pressing. Results - Tests and Diagnostics: EMG confirmed very mild carpal tunnel syndrome. - Imaging: An MRI of the lumbar spine was previously performed. [facility] Social History (Updated 11/18/25 @ 11:32 by Amanda Mckeon MA) Alcohol intake: current Alcohol intake frequency: holidays/special occasions only Patient Tobacco Use Status: Never used Tobacco Use of substances other than those prescribed or required for medical reasons: No Review of Systems Narrative Review of Systems - Musculoskeletal: Reports neck stiffness, low back pain, and an episode of right arm collapse during exercise. - Neurological: Reports tingling in the hand. - General: Reports sleep disturbance secondary to pain. Physical Exam Exam Exam: Physical Exam Cervical Spine: Examination of the cervical spine, he is nontender to palpation. Full range of motion cervical spine. Special Tests: Axial Compression test: Negative Spurlings test: Negative Lhermitte's sign is Negative Upper Extremities: Full range of motion bilateral upper extremities. Equal user interface designer strength bilaterally. Positive Tinel test on the right. Neuro: Sensation: Intact to upper extremities bilateral to light touch Strength C5 (Elbow Flexion): 5/5 on the left and 5/5 on the right. C6 (Elbow Ext): 5/5 on the left and 5/5 on the right. C7 (Elbow Ext): 5/5 on the left and 5/5 on the right. C8 (Finger Flex): 5/5 on the left and 5/5 on the right. T1 (Finger Abd/Add): 5/5 on the left and 5/5 on the right. DTR: C5 (Biceps): Left 2 Right 2 C6 (Brachioradialis): Left 2 Right 2 C7 (Triceps): Left 2 Right 2 Salas sign: Negative No pathologic clonus. No involuntary movement. Lumbar Spine: Examination of his lumbar spine, there is no visible swelling or deformity. He is tender to lower lumbar facets. He has full range of motion of the lumbar spine. He does have an increase in pain with facet loading. Special Tests: Lhermittes sign was negative Heel Toe walk is normal Left straight leg raise: Negative Right straight leg raise: Negative Special tests Mi test is negative Ganslen's test is negative SI Joint compression test negative Jean Carlos test negative Piriformis stretch is negative Lower Extremities: Full range of motion bilateral lower extremities. No calf pain or edema. Neuro: Sensation: Intact to lower extremities bilaterally Strength L2 (Psoas): 5/5 on the left and 5/5 on the right. L3 (Quads): 5/5 on the left and 5/5 on the right. L4 (Ant tibialis): 5/5 on the left and 5/5 on the right. L5 (EHL) 5/5 on the left and 5/5 on the right. S1 (Gastroc): 5/5 on the left and 5/5 on the right. DTR L4: (Patellar) Left 2 Right 2 S1: (Achilles) Left 1 Right 1 Babinski Downgoing No pathologic clonus. No involuntary movement. Vital Signs: BMI result Body Mass Index 30.0 Assessment & Plan Assessment & Plan (1) Lumbar radiculopathy: Code(s): M54.16 - Radiculopathy, lumbar region Category: Medical (2) Cervical radiculopathy: Code(s): M54.12 - Radiculopathy, cervical region Category: Medical (3) Carpal tunnel syndrome of right wrist: Code(s): G56.01 - Carpal tunnel syndrome, right upper limb Category: Medical Plan Pain Management - Affect: Patient's pain keeps him up at night. - Analgesia: He reports his pain is about the same. - Activities of Daily Living: Pain interferes with sleep, and he has concerns about heavy lifting. Plan Patient was informed and verbally consented to the use of an ambient scribe for clinic note documentation during this visit. 1. Mild Carpal Tunnel Syndrome The patient's EMG results confirm very mild carpal tunnel syndrome, which is believed to be the source of his hand tingling, rather than a cervical spine issue. Treatment options were discussed, including a corticosteroid injection, wrist splinting, and occupational therapy. An injection would offer symptom relief for approximately six months by decreasing inflammation but is not a cure. The patient is hesitant to pursue an injection as he does not want to merely mask the symptoms. He has decided to defer treatment for now and will call the office to schedule an injection if he changes his mind. 2. Cervicalgia The patient reports ongoing neck stiffness and an episode of right arm collapse during exercise, which could potentially be related to a C5 or C6 pinched nerve. The current plan is to address the confirmed carpal tunnel syndrome first, as it is a safer intervention than a neck procedure. An MRI of the neck was discussed as a future diagnostic option to investigate for a pinched nerve if symptoms persist. The patient was advised to consider bringing his weight down a little bit during lifting and to take it easy. 3. Low Back Pain The patient reports his low back pain is worse than his neck pain. No new management or diagnostic plan was initiated for this issue during the current visit. Patient may consider lumbar epidural. He will monitor his symptoms and contact our office with the treatment plan of his choice. Discussion Notes I discussed with the patient that his recent EMG showed very mild carpal tunnel syndrome, which is the likely cause of his hand tingling. I explained the treatment options, including a corticosteroid injection, splinting, and occupational therapy. I informed him that an injection could provide symptom relief for about six months by reducing inflammation but would not be a cure, and I reviewed the risks of infection, bleeding, and nerve damage. We discussed his recent episode of arm collapse, and I noted it could be related to a pinched nerve in his neck, which could be evaluated with an MRI if necessary. I explained that my approach is to treat the confirmed peripheral issue in the wrist first, as it is a safer intervention. The patient decided to defer any procedures at this time to think about his options. I agreed with his decision and instructed him to call the office if he wishes to proceed with a carpal tunnel injection. Patient Instructions - Your EMG test shows you have mild carpal tunnel syndrome, which is likely causing the tingling in your hand. - When lifting weights, consider lowering the weight to avoid aggravating your symptoms, especially given the recent episode of arm weakness. - Treatment options for your carpal tunnel include a steroid injection, splinting, or occupational therapy. - The steroid injection can provide symptom relief for about six months, but it is not a cure for the condition. - You have decided to wait before proceeding with any treatment. If you change your mind and want to get the injection, please call our office to schedule it. - Continue with a healthy diet and low-impact activities. Coding Level of Care Code Est Pt Level 3 (15379) Diagnoses Lumbar radiculopathy M54.16 Cervical radiculopathy M54.12 Carpal tunnel syndrome of right wrist G56.01
--- OUTSIDE RECORDS SUMMARY | 2025-11-18 14:24 | XMS_ITS | Encounter Summary ---
Author Organization [facility] Address [address] [place] [address] Care Team Providers Care Assembly Person Name Role Phone Marianela Cruz MD Primary Care Provider [phone] Reason for Visit * Reason Onset Date Comments Arm Injury 11/12/2025 Encounter Details Date Type Department Care Team ([facility] st Contact Info) Description 11/12/2025 Telephone Adult Medicine - [place] [address] [place] [id number] Marianela Cruz MD [address] [place] [address] Social History Tobacco Use Types Packs/Day Years [...] care for your loved ones. 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 [...] as of this encounter Progress Notes * Vibha Vasquez RN - 11/13/2025 2:10 PM EST spoke to pt-reports of doing curling exercises at the gym when L upper arm gave way ;hurting much few days ago. pt states it hurts when picking up a water bottle or shaking hands. appt made. * Shae Mary - 11/13/2025 12:54 PM EST Patient returning call. Please call back. * Vibha Vasquez RN - 11/13/2025 12:49 PM EST Attempted to call pt; [facility] for phone triage. * Dirk Vitale RN - 11/12/2025 10:38 AM EST Left message for pt to please return our call * Shae Mary - 11/12/2025 10:30 AM EST Patient call requires triage: Symptoms patient is presenting: patient working out at gym yesterday and his left arm bicep gave way and is in pain. Can't use his hand How long has patient had these symptoms?: yesterday For ALL patients calling to schedule any appointment (routine, sick visit, follow up, consult, etc.) in the outpatient setting please ask the following questions: Do you have fever of higher than 101, sore throat with difficulty swallowing or severe shortness ofbreath? no If YES to any of these above symptoms, send a message to triage and do not book. Red dot. If no, an audio or video visit should be booked. Have you had close contact with someone with Coronavirus in the last 14 days? no Have you traveled abroad? no Have you traveled recently to another state outside of [place], [place], [place], [place], [place], [place], [place]? no o If yes, did you quarantine for 14 days or have a negative covid test? no If yes to any of the above, patient is not to be scheduled in office until after 14 day quarantine or negative covid test. If pain or injury related was it due to an accident at work or from a motor vehicle accident? If yes, date of accident/Injury: No If yes, gather 3rd constitution party insurance information Third Republican Information: not applicable PCP: Marianela Cruz MD Payor: [facility] / Plan: [facility] CHOICE PLUS / Product Type: *No Product type* / documented in this encounter Plan of Treatment Not on file documented as of this encounter Visit Diagnoses Not on filedocumented in this encounter Additional Health Concerns Assessment Noted Time PHQ-9 Depression Total Score: 0 05/28/20 25 9:28 AM EDT documented as of this encounter Care Teams Assembly Person Relationship Specialty Start Date End Date Marianela Cruz MD [address] [place] [id number] PCP - General Internal Medicine 01/19/16 documented as of this encounter
--- OUTSIDE RECORDS SUMMARY | 2025-11-18 14:24 | XMS_ITS | Clinical Summary ---
Author Organization [facility] [address] [facility] lding Address [address] [place] [address] Phone Care Team Providers Care Rotary Driller Name Role Phone Marianela Curz MD Primary Care Provider [phone] Allergies Active Allergy Reactions Criticality Noted Date [...] 08/14/2025 Overview (08/14/2025): 08/08/2025 diagnosis through [facility] [place] Lumbar radiculopathy 08/14/2025 Overview (08/14/2025): 08/08/20[facility] [place] Carpal tunnel syndrome, bilateral 08/14/2025 Overview (08/14/2025): 08/08/20[facility] [place] Ab[facility] CT of paranasal sinuses 12/11/2018 Overview (12/25/2024): 12/16- mucosal abnormalities, referred to ENT Subclinical hypothyroidism 07/25/2017 Chronic viral hepatitis B wi thout delta agent and without coma 01/21/2016 Overview (12/25/2024): Ref gi 05/13. Pt did not respond [facility] GI Encounters Date Type Department Care Team Description 11/13/2025 3:51 PM EST - 11/13/2025 11:59 PM EST Hospital Encounter Xray - [place] [address] [place], [place] [phone] Biceps strain, right, initial encounter; Medial epicondylitis, right elbow Discharge Disposition: Home or Self Care 11/13/2025 3:00 PM EST Office Visit Walk-In Clinic - [facility] [address] [place], [place] [phone] Manolo Zapien PA Biceps strain, right, initial encounter (Primary Dx); Medial epicondylitis, right elbow 11/12/2025 Telephone Adult Medicine - [place] [address] [place] [address] Marianela Cruz MD 09/25/2025 4:17 PM EDT - 09/25/2025 11:59 PM EDT Hospital Encounter Radiology Department - [address] [phone] Radiculopathy, lumbar region Discharge Disposition: Home or Self Care 08/27/2025 Results Follow-Up Gastroenterology - [place] [address] [facility] [address] [place] [address] Keshia Vasquez DO 08/26/2025 12:28 PM EDT Anesthesia Event [facility] [address] [place] [address] Stephy Escobar MD Swanson, Mona, CRNA 08/26/2025 11:08 AM EDT - 08/26/2025 11:59 PM EDT Hospital Encounter [facility] [address] [place] [address] Keshia Vasquez DO Swanson, Mona, CRNA Freeman, Katharine O, MD Colon cancer screening Discharge Disposition: Home or Self Care from [...] V24) 09/17/2008 DX:Sacroiliitis, not elsewhe re classified (HCC) Concussion with no loss of consciousness 02/07/2018 [...] care for your loved ones. 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 or elderly care for an older [...] Orientation Straight 07/18/2025 12 :00 PM EDT Last Filed Vital Signs Vital Sign Reading Time Taken Comments Blood Pressure 122/59 11/13/2025 3:06 PM EST Pulse 64 11/13/2025 3:06 PM EST Temperature 36.9 C (98.4 F) 11/13/2025 3:06 PM EST Respiratory Rate 16 11/13/2025 3:06 PM EST Oxygen Saturation 98% 11/13/2025 3:06 PM EST Inhaled Oxygen Concentration - - Weight 94.8 [...] right, initial encounter Medial epicondylitis, right elbow MR LUMBAR SPINE WO CONTRAST Routine 09/25/2025 4:59 PM EDT Radiculopathy, lumbar region COLONOSCOPY Routine 08/26/2025 12:44 PM EDT Colon cancer screening TISSUE EXAM Routine 08/26/2025 12:39 PM EDT Colon cancer screening LIPID PANEL Routine 05/22/2024 HEPATITIS C SCREENING Routine 09/08/2018 from Last 3 Months or Most Recently Relevant to Health Maintenance Results * XR Elbow 3+ Views Right [...] Signed Date: 11/13/2025 16:22 ET Workstation ID: [id number] Transcribed By: Self Edit Transcribed Date: 11/13/2025 [...] Signed Date: 11/13/2025 16:22 ET Workstation ID: [id number] Transcribed By: Self Edit Transcribed Date: 11/13/2025 16:18 ET Manolo HERNANDEZ IMG XR PROCEDURES Final Re sult * MR Lumbar Spine wo Contrast (09/25/2025 [...] Signed Date: 09/27/2025 12:53 ET Workstation ID: [id number] Transcribed By: Self Edit Transcribed Date: 09/26/2025 [...] Signed Date: 09/27/2025 12:53 ET Workstation ID: [id number] Transcribed By: Self Edit Transcribed Date: 09/26/2025 17:21 ET Hernesto HERNANDEZ IMG MRI PROCEDURES Final Resul t * COLONOSCOPY Anesthesia - MAC; [facility] ENDOSCOPY (08/26/2025 12:44 PM EDT) Anatomical Region [...] pathology results. Narrative 08/26/2025 12:45 PM EDT [facility] Patient Name: Hilton Fermin Procedure Date: 08/26/2025 11:44 AM Date of : 1965 Age: 60 Gender: Male Note Status: Finalized Attending MD: Keshia Vasquez DO, [id number] Procedure Date No Time: 08/26/2025 Procedure: Colonoscopy [...] the physician, the nurse, the anesthesiologist, the jumpbasting machine operator and the vending technician in the pre-procedure area in the [...] retroflexion views. Procedure Code(s): --- Professional --- 79075, Colonoscopy, flexible; with removal of tumor(s), polyp(s), or other lesion(s) by snare technique Diagnosis Code(s): --- Professional --- Z12.11, Encounter for screening for malignant neoplasm of colon K64.9, Unspecified hemorrhoids D12.2, Benign neoplasm of ascending colon CPT copyright 2020 [employer]. All rights reserved. The codes documented in this report are preliminary and upon visual display manager review may be revised to meet current compliance requirements. KESHIA Vasquez DO 08/26/2025 12:44:58 PM This report has been signed electronically.Keshia Vasquez DO Number of Addenda: 0 Note Initiated On: 08/26/2025 11:44 AM Scope Withdrawal Time: 0 hours 7 minutes 34 seconds Scope In: 12:33:02 PM Scope Out: 12:43:49 PM Endoscopy Department at [facility] - [address] [place] [phone] Procedure Note Keshia Vasquez DO - 08/26/2025 [facility] GI Patient Name: Hilton Fermin Procedure Date: 08/26/2025 11:44 AM Date of : 1965 Age: 60 Gender: Male Note Status: Finalized Attending MD: Keshia Vasquez DO, [id number] Procedure Date No Time: 08/26/2025 Procedure: Colonoscopy [...] the physician, the nurse, the anesthesiologist, the jumpbasting machine operator and thetechnician in the pre-procedure area in [...] pulse, and oxygen saturations were monitored continuously. TheOlympus Pediatric Colonoscope was introduced through theanus and [...] retroflexion views. Procedure Code(s): --- Professional --- 33225, Colonoscopy, flexible; with removal of tumor(s), polyp(s), or other lesion(s) by snare technique Diagnosis Code(s): --- Professional --- Z12.11, Encounter for screening for malignantneoplasm of colon K64.9, Unspecified hemorrhoids D12.2, Benign neoplasm of ascending colon CPT copyright 2020 [employer]. All rights reserved. The codes documented in this report are preliminary and upon visual display manager reviewmay be revised to meet current compliance requirements. KESHIA Vasquez DO 08/26/2025 12:44:58 PM This report has been signed electronically.Keshia Vasquez DO Number of Addenda: 0 Note Initiated On: 08/26/2025 11:44 AM Scope Withdrawal Time: 0 hours 7 minutes 34 seconds Scope In: 12:33:02 PM Scope Out: 12:43:49 PM Endoscopy Department at [facility] - [address] [place] [phone] IMPRESSION: - Hemorrhoids found on perianal exam. [...] or neoplasia identified. 08/27/2025 1:15 PM EDT [facility] at 1315 EDT Gross Description [...] multiple levels. TS 08/27/2025 1:15 PM EDT [facility] Disclaimer Unless otherwise specified, all tissue is 10% NB formalin fixed and paraffin embedded. 08/27/2025 1:15 PM EDT [facility] Tissue Ascending colon structure / Unknown 08/26/2025 12:39 PM EDT 08/26/2025 1:51 PM EDT Keshia Vasquez DO LAB PATHOLOGY ORDERABLES Final R esult [facility] [address] [place] [address], * Lipid panel (05/22/2024) LDL/HDL Ratio 2 0 - 4 Triglycerides 66 0 - 150 mg/dL Cholesterol 150 0 - 200 mg/dL HDL 66 >=40 mg/dL LDL Cholesterol 71 0 - 100 mg/dL Blood Venous blood specimen / Unknown Historical Provider LAB BLOOD ORDERABLES Latosha l Result * Hepatitis C Screening (09/08/2018) Pathologist [facility] Hepatitis C Screening abstracted Historical Provider HEALTH MAINTENANCE Final Result from Last 3 Months or Most Recently Relevant to Health Maintenance Insurance [facility] Care Teams Rotary Driller Relationship Specialty Start Date End Date Marianela Cruz MD [address] [place] [address] PCP - General Internal Medicine 01/19/16
== END 2025-11-18 11:50 | disposition home or self-care (01) ==
LOC: HO.HPHYS 11:17
PROVIDERS: PCP Pediatrics; Visit Provider Physician Assistant
DX: M54.16 Radiculopathy, lumbar region (principal); M54.12 Radiculopathy, cervical region; G56.01 Carpal tunnel syndrome, right upper limb
CPT/HCPCS: 99213